=== PATIENT | male | born 2005 | race Caucasian/White ===

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

== ENCOUNTER 2024-03-02 15:35 | Inpatient (IN) | payer SELFPAY ==
[2024-03-02 15:41] VITALS: BP 132/93; PULSE 122; RESP 18; TEMP 37.4; O2SAT 96; BMI 29.0
[2024-03-02] MEDS: dexamethasone 10 mg/mL INJ IM (16:21)
[2024-03-02] MEDS: sodium chloride 0.9% 1,000 ML 999 ML IV ×3 (16:21→19:09)
[2024-03-02] MEDS: ketorolac 30 mg/mL INJ IVP (16:21)
--- NOTE | 2024-03-02 16:49 | XRR_ITS ---
PROCEDURE INFORMATION: Exam: XR Chest Exam date and time: 03/02/2024 4:57 PM Age: 18 years old Clinical indication: Dyspnea; Additional info: Dyspnea/cough TECHNIQUE: Imaging protocol: Radiologic exam of the chest. Views: 1 view. COMPARISON: CR XR chest 1V portable [id number] 06/28/2023 2:05 PM FINDINGS: Lungs: No consolidation. Pleural spaces: No pleural effusion. No pneumothorax. Heart/Mediastinum: No cardiomegaly. Bones/joints: No acute findings. XR/XR chest 1V portable [id number] IMPRESSION: No acute findings.
[2024-03-02 16:59] LABS: Monoscreen Positive (Negative)
--- NOTE | 2024-03-02 17:07 | CTR_ITS ---
PROCEDURE INFORMATION: Exam: CT Neck With Contrast Exam date and time: 03/02/2024 5:14 PM Age: 18 years old Clinical indication: Throat pain; Patient HX: Swollen tonsils x2 days; Additional info: Neck pain pharyngitis TECHNIQUE: Imaging protocol: Computed tomography of the neck with contrast. Radiation optimization: All CT scans at this facility use at least one of these dose optimization techniques: automated exposure control; mA and/or kV adjustment per patient size (includes targeted exams where dose is matched to clinical indication); or iterative reconstruction. Contrast material: OMNI 350; Contrast volume: 100 ml; Contrast route: INTRAVENOUS (IV); COMPARISON: CR (CHEST, ) 03/02/2024 4:57 PM RADIATION DOSE METRICS: Total DLP (mGy-cm): 192.71 FINDINGS: Pharynx: Hypertrophy of the pharyngeal, lingual and palatine tonsils with areas of striated enhancement. No definite loculated collection. Larynx: Epiglottis is normal. Prevertebral and retropharyngeal spaces: No acute findings. Salivary glands: Glands are normal in size. Thyroid: No enlarged nodules. Lymph nodes: Mildly enlarged cervical lymph nodes are likely reactive. Trachea: No acute findings. Lungs: Grossly clear as visualized. Bones/joints: No acute findings. Soft tissues: No significant soft tissue swelling or loculated collection. CT/CT neck w con* [id number] IMPRESSION: Acute tonsillitis/pharyngitis without abscess.
[2024-03-02] MEDS: iohexol 350 mg/mL 500 mL Btl (per mL) IV (17:20)
--- NOTE | 2024-03-02 18:13 | W.ED.SOB ---
HPI - SOB/Dyspnea General: Chief Complaint: Shortness of Breath/Dyspnea Stated Complaint: sob, throat swelling, n/v Time Seen by Provider: 03/02/24 15:49 Source: patient Mode of arrival: ambulatory History of Present Illness: HPI Narrative: 18-year-old male presents emergency room complaining of throat pain and difficulty swallowing. He said some nausea vomiting as well. He was seen earlier in the day and tested for strep which was negative is thought to be mono. He was treated as an outpatient with oral steroids however it continues to bother him. He is having difficult time even swallowing saliva at this point. He has some mild cough. He feels short of breath his oxygen saturation is normal he is rather tachycardic when he first arrives. Associated symptoms: Deny abdominal pain, chest congestion, chest pain, cough, diaphoresis, dizziness, extremity pain, fever(s), hemoptysis, lightheadedness, myalgias, nausea, orthopnea, palpitations, paresthesias, polydipsia, polyuria, rash, sense of impending doom, syncope or vomiting Treatment prior to arrival: none Review of Systems Const: Denies: fever(s) or diaphoresis ENMT: Reports: throat pain, enlarged tonsils, odynophagia and hoarseness Card: Denies: chest pain, palpitations, lightheadedness, syncope or orthopnea Resp: Reports: dyspnea; Denies: hemoptysis or chest congestion GI: Denies: abdominal pain, nausea or vomiting Musc: Denies: extremity pain Neuro: Denies: dizziness Endo: Denies: polyuria or polydipsia PFS ED PFSH: Medical History Loud snoring Asthma Seasonal allergic rhinitis Anxiety and depression Surgical History Hx of myringotomy with tube replacement H/O adenoidectomy Family History Other Cancer Diabetes Hypertension Social History Smoking and tobacco/nicotine status: never used tobacco/nicotine Second hand smoke exposure: No Alcohol intake: never Substance/Drug Use: never Adopted: No Caregiver/support person: Yes Lives independently: No Household members: family Housing: House Marital status: Single Highest education level completed: High School Graduate service: No Current occupational status: employed Pets and animals: Yes Do you think of yourself as: Straight/Heterosexual Current gender identity: Male Physical Exam Const: GENERAL APPEARANCE: cooperative ORIENTATION/CONSCIOUSNESS: Yes awake, Yes oriented to person, Yes oriented to place and Yes oriented to time HENMT: COMMON NORMALS: normocephalic, atraumatic and hearing grossly normal bilaterally HEAD & SCALP: normocephalic and atraumatic OTHER: Significant amount of swelling with crowding of the tonsils at the midline pseudomembranous mucus coating over the tonsils. Patient has garbled hot potato voice no stridor. Significant anterior cervical lymphadenopathy tender Neck/C-Spine: GENERAL: Yes lymphadenopathy Resp: COMMON NORMALS: normal respiratory effort, No retractions, No use of accessory muscles and clear to auscultation bilaterally AUSCULTATION: clear to auscultation bilaterally Cardio: COMMON NORMALS: No murmurs present (Cardio) RATE: tachycardic GI: COMMON NORMALS: Soft to palpation and No hepatosplenomegaly present AUSCULTATION: Yes normoactive bowel sounds PALPATION: Yes Soft to palpation, No Tenderness to palpation present (GI), No Guarding due to palpation present (GI) and Yes No hepatosplenomegaly present Extremity: COMMON NORMALS: normal to inspection, capillary refill normal, no clubbing, cyanosis or edema, no calf tenderness and no pedal edema Neuro: SENSORIUM/ORIENTATION: Yes oriented to person, Yes oriented to place and Yes oriented to time Skin: COMMON NORMALS: no rashes or lesions noted GENERAL SKIN EXAM: no rashes or lesions noted Course Vital Signs: Vital signs: Vital Signs Temperature 98.4 F 03/03/24 12:00 Pulse Rate 105 H 03/03/24 12:00 Respiratory Rate 16 03/03/24 12:00 Blood Pressure 136/79 03/03/24 12:00 Pulse Oximetry 98 03/03/24 12:00 Oxygen Delivery Me thod Room Air 03/03/24 11:23 MDM - SOB/Dyspnea Medical Decision Making Significant pharyngeal tonsil inflammation and swelling with mucus membranous coating over the tonsils. He has difficult time swallowing. Admit for IV fluids steroids supportive cares. Rapid strep was negative earlier today. Discussed with hospitalist orders written. Medical Records I reviewed the patient's medical records. Lab Data I reviewed the patient's lab results. 03/03/24 05:30 03/03/24 05:30 Labs/Radiology: Radiology Impressions Chest X-Ray 03/02/24 16:49 IMPRESSION: No acute findings. Neck CT 03/02/24 17:07 IMPRESSION: Acute tonsillitis/pharyngitis without abscess. Gallbladder Ultrasound 03/03/24 08:12 IMPRESSION: Normal right upper quadrant ultrasound. Laboratory Results WBC 19.74 10^3/uL (4.5-13.0) H 03/02/24 16:15 RBC 5.97 10^6/uL (3.85-5.65) H 03/02/24 16:15 Hgb 16.90 g/dL (13.2-15.6) H 03/02/24 16:15 Hct 49.2 % (37-53) 03/02/24 16:15 MCV 82.4 fl (82-101) 03/02/24 16:15 MCH 28.3 pg (27-33) 03/02/24 16:15 MCHC 34.3 g/dL (30-55) 03/02/24 16:15 RDW 13.4 % (12.1-15.1) 03/02/24 16:15 Plt Count 115 10^3/cmm (157-399) L D 03/02/24 16:15 MPV 12.1 fL (7.4-10.4) H 03/02/24 16:15 Neut % (Auto) 26.3 % 03/02/24 16:15 Lymph % (Auto) 67.4 % 03/02/24 16:15 [place] % (Auto) 3.9 % 03/02/24 16:15 Eos % (Auto) 0.0 % 03/02/24 16:15 Baso % (Auto) 1.9 % 03/02/24 16:15 Neut # (Auto) 5.20 10^3/uL (1.8-8.0) 03/02/24 16:15 Lymph # (Auto) 13.3 10^3/uL (1.5-6.5) H 03/02/24 16:15 [place] # (Auto) 0.8 10^3/uL (0.2-0.9) 03/02/24 16:15 Eos # (Auto) 0.0 10^3/uL (0.0-0.8) 03/02/24 16:15 Baso # (Auto) 0.4 10^3/uL (0.0-0.1) H 03/02/24 16:15 Nucleated RBC % (auto) 0 % 03/02/24 16:15 Nucleated RBCs # 0.0 /100WBC 03/02/24 16:15 Sodium 140 mmol/L (136-145) 03/02/24 16:15 Potassium 3.9 mmol/L (3.5-5.1) 03/02/24 16:15 Chloride 100 mmol/L (98-107) 03/02/24 16:15 Carbon Dioxide 23 mmol/L (22-29) 03/02/24 16:15 Anion Gap 20.9 (5-19) H 03/02/24 16:15 BUN 10 mg/dL (6-20) 03/02/24 16:15 Creatinine 0.8 mg/dL (0.7-1.2) 03/02/24 16:15 GFR Calculation 124.5 mL/min (90-130) 03/02/24 16:15 Glucose 113 mg/dL (65-115) 03/02/24 16:15 Calculated Osmolality 290 mOsm/kg (285-295) 03/02/24 16:15 Calcium 8.9 mg/dL (8.5-10.5) 03/02/24 16:15 Total Bilirubin 1.2 mg/dL (0.15-1.2) 03/02/24 16:15 AST 142 U/L (0-40) H 03/02/24 16:15 ALT 393 U/L (0-41) H 03/02/24 16:15 Alkaline Phosphatase 245 U/L (40-130) H 03/02/24 16:15 Total Protein 8.4 g/dL (6.6-8.7) 03/02/24 16:15 Albumin 4.8 g/dL (3.5-5.2) 03/02/24 16:15 Globulin 3.6 g/dL (1.3-4.6) 03/02/24 16:15 Procalcitonin 0.19 ng/mL (0-0.5) 03/02/24 16:15 Monoscreen Positive (Negative) H 03/02/24 16:15 All radiology interpretation(s) finalized by discharge Discharge Plan Discharge Patient Disposition: Placed in Observation Admit Provider: Mariam Blunt Clinical Impression: Acute tonsillitis due to infectious mononucleosis, Reactive cervical lymphadenopathy Discharge Diet: GI Soft Discharge Activity: Increase activity as tolerated Coding Level of Care Code ED Senior Construction Project Manager for Cheryl Hodge
[2024-03-02 18:22] LABS: Basophils # 0.4 10^3/uL (0.0-0.1); Basophils % 1.9 %; Hematocrit 49.2 % (37-53); Lymphocytes # 13.3 10^3/uL (1.5-6.5); Lymphocytes % 67.4 %; Mean Corpuscular HGB Conc 34.3 g/dL (30-55); Mean Corpuscular Hemoglobin 28.3 pg (27-33); Mean Corpuscular Volume 82.4 fl (82-101); Mean Platelet Volume 12.1 fL (7.4-10.4); Monocytes # 0.8 10^3/uL (0.2-0.9); Monocytes % 3.9 %; Neutrophils % 26.3 %; Nucleated Red Blood Cells % 0 %; Platelet Count 115 10^3/cmm (157-399); Red Blood Count 5.97 10^6/uL (3.85-5.65); Red Cell Distribution Width 13.4 % (12.1-15.1); White Blood Count 19.74 10^3/uL (4.5-13.0)
[2024-03-02 18:44] LABS: Alanine Aminotransferase 393 U/L (0-41); Albumin Level 4.8 g/dL (3.5-5.2); Alkaline Phosphatase 245 U/L (40-130); Anion Gap 20.9 (5-19); Aspartate Amino Transferase 142 U/L (0-40); Blood Urea Nitrogen 10 mg/dL (6-20); Calcium 8.9 mg/dL (8.5-10.5); Carbon Dioxide 23 mmol/L (22-29); Chloride 100 mmol/L (98-107); Creatinine Clr Calc Pharmacy 169.0017; Globulin 3.6 g/dL (1.3-4.6); Glomerular Filtration Rate 124.5 mL/min (90-130); Glucose 113 mg/dL (65-115); Osmolality Calculated 290 mOsm/kg (285-295); Potassium 3.9 mmol/L (3.5-5.1); Sodium 140 mmol/L (136-145); Total Bilirubin 1.2 mg/dL (0.15-1.2); Total Protein 8.4 g/dL (6.6-8.7)
--- NOTE | 2024-03-02 18:53 | P.HP_ITS ---
Providers/Chief Complaint 2 Primary Care Provider: MIGUEL Ro Chief Complaint: sob, throat swelling, n/v History of Present Illness David Gibson is a 18 year old male who has been experiencing sore throat for last 2 days he has not noticed any fever, nausea, vomiting or severe shortness of breath. He has not been able to eat any solid food. He does have tonsils, stating that he passed out to tonsillar stone this morning as well. He is experiencing profuse sweating lethargy and fatigue. Neck CT scan did not show any sign of epiglottitis, no drooling of saliva clinically, patient has tonsillitis and pharyngeal wall edema. Review of Systems 2 Const: Reports: fever(s) and chills Eyes: Denies: change in vision ENMT: Denies: throat pain Card: Denies: chest pain Resp: Denies: dyspnea GI: Denies: abdominal pain : Denies: flank pain Medications/Allergies Home Medications Medication Instructions Recorded Confirmed Last Taken Type cetirizine 10 mg tablet (Zyrtec) 10 mg PO QDAY #30 tabs 12/20/22 03/02/24 Unknown Rx albuterol sulfate 90 mcg/actuation 2 puff inhalation QID PRN 12/25/22 03/02/24 Unknown Rx aerosol inhaler (ProAir HFA) shortness of breath or wheezing #6.7 grams lidocaine HCl 2 % mucosal solution 5 ml mucous membrane QID PRN pain 03/02/24 03/02/24 Unknown Rx (Lidocaine Viscous) #100 mL prednisolone sodium phosphate 20 20 mg (5 mL) PO DAILY #60 mL 03/02/24 03/02/24 Unknown Rx mg/5 mL (4 mg/mL) oral solution Allergies Allergy/AdvReac Type Severity Reaction Status Date / Time No Known Allergies Allergy Verified 03/02/24 15:44 PFSH Acute 2 PFSH: Medical History Asthma Seasonal allergic rhinitis Anxiety and depression Surgical History Hx of myringotomy with tube replacement H/O adenoidectomy Family History Other Cancer Diabetes Hypertension Social History Smoking and tobacco/nicotine status: never used tobacco/nicotine Second hand smoke exposure: No Alcohol intake: never Substance/Drug Use: never Adopted: No Caregiver/support person: Yes Lives independently: No Household members: family Housing: House Marital status: Single Highest education level completed: High School Graduate service: No Current occupational status: employed Pets and animals: Yes Do you think of yourself as: Straight/Heterosexual Current gender identity: Male Vitals/I&O/Wt Last Vital Signs Temp 99.4 F 03/02/24 15:41 Pulse 122 H 03/02/24 15:41 Resp 18 03/02/24 15:41 BP 132/93 03/02/24 15:41 Pulse Ox 96 03/02/24 15:41 O2 Del Method Room Air 03/02/24 15:41 03/02/24 03/02/24 03/02/24 06:59 14:59 22:59 Intake Total 1000 / 1000 Balance 1000 / 1000 Weight last 48 hrs Weight 91.626 kg Physical Exam 2 Narrative: Pharyngeal wall edema, inflamed, erythema Tonsils with white exudate GCS 15 No active sign of stridor or wheezing No airway compromise no drooling of saliva Awake and alert Pleasant cooperative Appears stated age Well-built young male S1, S2 tachycardia Hemodynamically stable Data 03/02/24 16:15 03/02/24 16:15 A&P Assessment and plan (1) Asthma: (2) Loud snoring: (3) Infectious mononucleosis: Plan Infectious mononucleosis Start antibiotics IV fluid hydration Add steroids, Decadron Closely monitor for any signs of worsening of shortness of breath Currently saturating well on room air Full code Clear liquid diet Advance diet gradually I have counseled patient on splenomegaly and avoiding contact sports, he should also see an ENT surgeon for tonsillectomy he should get screening for PETROS Attestations 2 Medical Necessity Statement*: Anticipating discharge within 48 hours Diagnoses Asthma J45.909 Loud snoring R06.83 Infectious mononucleosis B27.90
[2024-03-02 18:58] LABS: Slide Review Slide Review Perform
[2024-03-02 19:01] VITALS: BP 144/81; PULSE 107; RESP 21; O2SAT 98
[2024-03-02 19:34] LABS: Procalcitonin 0.19 ng/mL (0-0.5)
[2024-03-02 19:42] VITALS: BP 122/81; PULSE 100; RESP 20; O2SAT 98
[2024-03-02 20:00] VITALS: BP 127/75; PULSE 99; RESP 17; TEMP 36.8; O2SAT 97; BMI 29.9
[2024-03-02] MEDS: chlorhexidine gluconate 0.12% Btl 473 mL 15 ML MUCOUS MEM (20:42)
[2024-03-02] MEDS: sodium chloride 0.9% 1,000 ML 100 ML IV (20:42)
[2024-03-02 23:21] VITALS: BP 107/62; PULSE 82; RESP 18; TEMP 36.6; O2SAT 96
[2024-03-03 00:07] VITALS: PULSE 97; RESP 18; O2SAT 97
[2024-03-03 04:00] VITALS: BP 121/70; PULSE 97; RESP 17; TEMP 36.4; O2SAT 98
[2024-03-03] MEDS: sodium chloride 0.9% 1,000 ML 100 ML IV (05:39)
[2024-03-03 06:06] LABS: Hematocrit 41.7 % (37-53); Mean Corpuscular HGB Conc 34.5 g/dL (30-55); Mean Corpuscular Hemoglobin 28.3 pg (27-33); Mean Corpuscular Volume 82.1 fl (82-101); Mean Platelet Volume 10.2 fL (7.4-10.4); Platelet Count 162 10^3/cmm (157-399); Red Blood Count 5.08 10^6/uL (3.85-5.65); Red Cell Distribution Width 13.3 % (12.1-15.1); White Blood Count 17.93 10^3/uL (4.5-13.0)
[2024-03-03 06:29] LABS: Anion Gap 17.1 (5-19); Blood Urea Nitrogen 12 mg/dL (6-20); C Reactive Protein 13.8 mg/L (0.0-4.9); Calcium 8.1 mg/dL (8.5-10.5); Carbon Dioxide 22 mmol/L (22-29); Chloride 110 mmol/L (98-107); Creatinine Clr Calc Pharmacy 231.2814; Glomerular Filtration Rate 173.6 mL/min (90-130); Glucose 112 mg/dL (65-115); Magnesium 2.2 mg/dL (1.7-2.2); Osmolality Calculated 301 mOsm/kg (285-295); Potassium 4.1 mmol/L (3.5-5.1); Sodium 145 mmol/L (136-145)
[2024-03-03 07:05] LABS: Basophils % 0.8 %; Eosinophils % 0.2 %; Lymphocytes # 11.2 10^3/uL (1.5-6.5); Lymphocytes % 62.5 %; Monocytes # 1.9 10^3/uL (0.2-0.9); Monocytes % 10.6 %; Neutrophils # 4.59 10^3/uL (1.8-8.0); Neutrophils % 25.5 %
[2024-03-03 07:06] LABS: Basophils # 0.1 10^3/uL (0.0-0.1)
[2024-03-03 07:08] LABS: Slide Review Slide Review Perform
[2024-03-03 07:43] VITALS: BP 124/79; PULSE 91; RESP 18; TEMP 36.5; O2SAT 98
[2024-03-03 08:01] VITALS: PULSE 107; RESP 16; O2SAT 99
--- NOTE | 2024-03-03 08:12 | US_ITS ---
WS: [id number] RIGHT UPPER QUADRANT ULTRASOUND HISTORY: ABNML LFTS COMPARISON: None available. Liver: 16.0 cm in length. Normal size liver and echogenicity. No bile duct dilatation or mass. Portal Vein: Normal hepatopetal flow with monophasic waveform. Gallbladder: Normally distended gallbladder with no stones or wall thickening. CBD: 0.7 cm Pancreas: Partially visualized. Head and tail are obscured by bowel gas. Right kidney: 10.7 cm in length. Normal size and echogenicity. No hydronephrosis or mass. Aorta and IVC: Unremarkable abdominal aorta and IVC. No ascites. US/US gall bladder 80459 IMPRESSION: Normal right upper quadrant ultrasound.
--- NOTE | 2024-03-03 09:39 | P.DS_ITS ---
Discharge Providers Date of Admission: 03/02/24 19:34 Date of Discharge: March 03, 2024 Attending Provider at Admission: Mariam Blunt MD Attending Provider at Discharge: Dallas Erickson MD Primary Care Provider: MIGUEL Ro Diagnoses at Discharge Discharge Diagnosis (1) Asthma: Status: Acute (2) Loud snoring: Status: Acute (3) Infectious mononucleosis: Status: Acute Reason for Visit Reason for Visit: sob, throat swelling, n/v Hospital Course Hospital Course 89-year-old male who open suffering from sore throat hoarseness of voice and inability to eat for last 2 to 3 days, in the ER he was diagnosed with infectious mononucleosis, CT scan neck showed pharyngitis tonsillitis. Patient is stating that he passed 2 tonsillar stones as well, he was given ceftriaxone 2 g, aggressive IV fluid hydration along steroids and anti-inflammatory medication ketorolac. He is able to swallow to some extent, he has remained afebrile, leukocytosis related to steroids, at the time of discharge I will give him referral to see Dr. Cota on 03/04 I have personally spoken to Dr. Cota. He has recommended Augmentin 750 mg syrup 3 times a day along Medrol pack. Patient is stating that he has finished sleep study a year ago he was not diagnosed with sleep apnea. He does have loud snoring issue. Physical Exam Narrative: Awake and alert No sign of epiglottitis GCS 15 Nonfocal neuroexam Able to tolerate clear liquid diet S1, S2 Euvolemic Discharge Data Studies Completed and Pending Completed Studies During Hospitalization Category Date Time Status CT neck w con* [id number] Stat Cat Scan 03/02/24 17:07 Completed XR chest 1V portable [id number] Stat Exams 03/02/24 16:49 Completed Pending at discharge Category Date Time Status US gall bladder [id number] Routine Ultrasound 03/03/24 08:12 Ordered Radiology Impressions Chest X-Ray 03/02/24 16:49 IMPRESSION: No acute findings. Neck CT 03/02/24 17:07 IMPRESSION: Acute tonsillitis/pharyngitis without abscess. Laboratory Results WBC 17.93 10^3/uL (4.5-13.0) H 03/03/24 05:30 RBC 5.08 10^6/uL (3.85-5.65) 03/03/24 05:30 Hgb 14.40 g/dL (13.2-15.6) 03/03/24 05:30 Hct 41.7 % (37-53) 03/03/24 05:30 MCV 82.1 fl (82-101) 03/03/24 05:30 MCH 28.3 pg (27-33) 03/03/24 05:30 MCHC 34.5 g/dL (30-55) 03/03/24 05:30 RDW 13.3 % (12.1-15.1) 03/03/24 05:30 Plt Count 162 10^3/cmm (157-399) D 03/03/24 05:30 MPV 10.2 fL (7.4-10.4) 03/03/24 05:30 Neut % (Auto) 25.5 % 03/03/24 05:30 Lymph % (Auto) 62.5 % 03/03/24 05:30 Wetzel % (Auto) 10.6 % 03/03/24 05:30 Eos % (Auto) 0.2 % 03/03/24 05:30 Baso % (Auto) 0.8 % 03/03/24 05:30 Neut # (Auto) 4.59 10^3/uL (1.8-8.0) 03/03/24 05:30 Lymph # (Auto) 11.2 10^3/uL (1.5-6.5) H 03/03/24 05:30 Wetzel # (Auto) 1.9 10^3/uL (0.2-0.9) H 03/03/24 05:30 Eos # (Auto) 0.0 10^3/uL (0.0-0.8) 03/03/24 05:30 Baso # (Auto) 0.1 10^3/uL (0.0-0.1) 03/03/24 05:30 Nucleated RBC % (auto) 0 % 03/02/24 16:15 Nucleated RBCs # 0.0 /100WBC 03/03/24 05:30 Sodium 145 mmol/L (136-145) 03/03/24 05:30 Potassium 4.1 mmol/L (3.5-5.1) 03/03/24 05:30 Chloride 110 mmol/L (98-107) H 03/03/24 05:30 Carbon Dioxide 22 mmol/L (22-29) 03/03/24 05:30 Anion Gap 17.1 (5-19) 03/03/24 05:30 BUN 12 mg/dL (6-20) 03/03/24 05:30 Creatinine 0.6 mg/dL (0.7-1.2) L 03/03/24 05:30 GFR Calculation 173.6 mL/min (90-130) H 03/03/24 05:30 Glucose 112 mg/dL (65-115) 03/03/24 05:30 Calculated Osmolality 301 mOsm/kg (285-295) H 03/03/24 05:30 Calcium 8.1 mg/dL (8.5-10.5) L 03/03/24 05:30 Magnesium 2.2 mg/dL (1.7-2.2) 03/03/24 05:30 Total Bilirubin 1.2 mg/dL (0.15-1.2) 03/02/24 16:15 AST 142 U/L (0-40) H 03/02/24 16:15 ALT 393 U/L (0-41) H 03/02/24 16:15 Alkaline Phosphatase 245 U/L (40-130) H 03/02/24 16:15 C-Reactive Protein 13.8 mg/L (0.0-4.9) H 03/03/24 05:30 Total Protein 8.4 g/dL (6.6-8.7) 03/02/24 16:15 Albumin 4.8 g/dL (3.5-5.2) 03/02/24 16:15 Globulin 3.6 g/dL (1.3-4.6) 03/02/24 16:15 Procalcitonin 0.19 ng/mL (0-0.5) 03/02/24 16:15 Monoscreen Positive (Negative) H 03/02/24 16:15 Vitals Last Vital Signs Temp 97.7 F 03/03/24 07:43 Pulse 107 H 03/03/24 08:01 Resp 16 03/03/24 08:01 BP 124/79 03/03/24 07:43 Pulse Ox 99 03/03/24 08:01 O2 Del Method Room Air 03/03/24 08:01 Discharge Plan Discharge Patient Disposition: Home Condition: Stable Prescriptions: New amoxicillin-pot clavulanate [Augmentin ES-600] 600-42.9 mg/5 mL suspension for reconstitution 5 ml PO Q8H 10 Days Qty: 150 0RF Rx Instructions: 1 and 1/2 teaspoon to make it 750 mg 3 times a day methylprednisolone [Medrol (Navid)] 4 mg tablets,dose pack See Rx Instructions .ROUTE .COMPLEX Qty: 21 0RF Rx Instructions: orally per package directions Continued albuterol sulfate [ProAir HFA] 90 mcg/actuation HFA aerosol inhaler 2 puff inhalation QID PRN (Reason: shortness of breath or wheezing) Qty: 6.7 0RF Zyrtec 10 mg tablet 10 mg PO QDAY PRN (Reason: allergies) Discharge Orders: Discharge Order (Routine); Ordered 03/03/24 Ordered By: Dallas Erickson Referrals: Emma Culver FNP-C [Primary Care Provider] - Marc Cota MD [Physician] - 03/04/24 (he can see him tomorrow, call to get the time) Discharge Diet: GI Soft Discharge Activity: Increase activity as tolerated Patient Instructions: Opioid Safety Discharge Attestations Time Spent in Discharge Care*: greater than 30 min Quality Metrics Clinical Quality Measures [ No reported AMI, CVA or VTE this stay] Coding Level of Care Code Acute Code for [facility] Fwd Diagnoses Asthma J45.909 Loud snoring R06.83 Infectious mononucleosis B27.90
[2024-03-03] MEDS: dexamethasone 10 mg/mL INJ 6 MG IVP (10:10)
[2024-03-03] MEDS: chlorhexidine gluconate 0.12% Btl 473 mL 15 ML MUCOUS MEM (10:10)
[2024-03-03] MEDS: cefTRIAXone 2,000 MG in sodium chloride 0.9% (plus) 50 ML 100 MG IV (10:10)
[2024-03-03] MEDS: lidocaine 2% viscous 1.667 ML, diphenhydrAMINE oral liq 4.165 MG, aluminum-mag hydrox-s... MUCOUS MEM (11:12)
[2024-03-03] MEDS: phenol oral Spray 177 mL 3 SPRAY MUCOUS MEM (11:17)
[2024-03-03 11:23] VITALS: BP 136/79; PULSE 105; RESP 16; TEMP 36.9; O2SAT 98
--- NOTE | 2024-03-03 11:57 | PC.NURSE ---
Discussed discharge with patient and father in the room. Explained medication and follow up appointments. All questions answered. Verbalized understanding by patient.
[2024-03-03 12:00] VITALS: BP 136/79; PULSE 105; RESP 16; TEMP 36.9; O2SAT 98
== END 2024-03-03 11:40 | disposition home or self-care (01) | DRG 866 ==
LOC: ER 18:20 → MEDSURG 19:35
PROVIDERS: Admitting Provider Internal Medicine; Emergency Provider Family Medicine; PCP Nurse Practitioner Family; Visit Provider Internal Medicine
DX: B27.90 Infectious mononucleosis, unspecified without complication (principal); J03.80 Acute tonsillitis due to other specified organisms; J45.909 Unspecified asthma, uncomplicated; R06.83 Snoring
CPT/HCPCS: 36415; 70491; 71045; 76705; 80048; 80053; 83735; 84145; 85007; 85025; 86140; 86308; 87071; 87880; 96361; 96372; 96374; 99285; J0696; J1100; J1885; J7030; Q9967